=== PATIENT | male | born 1960 | race African-American/Black ===

== ENCOUNTER 2019-05-17 21:35 | Emergency (ER) | payer SELFPAY ==
--- NOTE | 2019-05-17 22:03 | ER Document Report ---
ED Medical Screen (RME) - General Chief Complaint: Psych Problem Stated Complaint: SI/PSYCH Time Seen by Provider: 05/17/19 22:02 Mode of Arrival: Ambulatory Information source: Patient Notes: 59-year-old male presented to ED for complaint of feeling like he wants to kill his girlfriend and then himself. He states he has not been less angry and upset and he stopped doing drugs. He states he has been donating blood regularly for the last 3 years and has never been turned down and recently he was turned down and he is scared to going to find out why he cannot donate blood. He states if his girlfriend is giving some the next and so he cannot give blood he is going to left. Patient is alert and oriented very angry. Respirations regular and unlabored speaking in full sentences. I have greeted and performed a rapid initial assessment of this patient. A comprehensive ED assessment and evaluation of the patient, analysis of test results and completion of medical decision making process will be conducted by an additional ED providers. Physical Exam - Vital signs Vitals: Temp Pulse Resp BP Pulse Ox 98.4 F 88 18 139/84 H 95 05/17/19 21:42 05/17/19 21:42 05/17/19 21:42 05/17/19 21:42 05/17/19 21:42 Course - Vital Signs Vital signs: Temp Pulse Resp BP Pulse Ox 98.4 F 88 18 139/84 H 95 05/17/19 21:42 05/17/19 21:42 05/17/19 21:42 05/17/19 21:42 05/17/19 21:42
[2019-05-17 22:45] LABS: ABSOLUTE BASOPHILS # (AUTO) 0.1 10^3/uL (0.0-0.2); ABSOLUTE EOSINOPHILS # (AUTO) 0.3 10^3/uL (0.0-0.6); ABSOLUTE LYMPHOCYTES (AUTO) 2.5 10^3/uL (0.5-4.7); ABSOLUTE MONOCYTES (AUTO) 0.6 10^3/uL (0.1-1.4); BASOPHILS % (AUTO) 1.2 % (0-2); EOSINOPHILS % (AUTO) 4.3 % (0-6); HEMATOCRIT 44.2 % (37.9-51.0); HEMOGLOBIN 15.1 g/dL (13.5-17.0); LYMPHOCYTES % (AUTO) 33.2 % (13-45); MEAN CORPUSCULAR HEMOGLOBIN 30.2 pg (27.0-33.4); MEAN CORPUSCULAR HGB CONC 34.3 g/dL (32.0-36.0); MEAN CORPUSCULAR VOLUME 88 fl (80-97); MONOCYTES % (AUTO) 8.5 % (3-13); PLATELET COUNT 361 10^3/uL (150-450); RED BLOOD COUNT 5.02 10^6/uL (4.35-5.55); RED CELL DISTRIBUTION WIDTH 14.2 % (11.5-14.0); SEGMENTED NEUTROPHILS % (AUTO) 52.8 % (42-78); TOTAL CELLS COUNTED % (AUTO) 100 %; WHITE BLOOD COUNT 7.6 10^3/uL (4.0-10.5)
[2019-05-17 22:56] LABS: APPEARANCE,URINE CLEAR; BILIRUBIN,URINE SMALL (NEGATIVE); COLOR,URINE AMBER; GLUCOSE, URINE NEGATIVE (NEGATIVE); KETONES,URINE TRACE mg/dL (NEGATIVE); LEUKOCYTE ESTERASE,URINE TRACE (NEGATIVE); NITRITE,URINE NEGATIVE (NEGATIVE); PROTEIN,URINE 30 mg/dL (NEGATIVE); URINE SPECIFIC GRAVITY 1.032
[2019-05-17 23:13] LABS: ALBUMIN 4.3 g/dL (3.5-5.0); ALKALINE PHOSPHATASE 84 U/L (38-126); ANION GAP 11 (5-19); ASPARTATE AMINO TRANSFERASE 38 U/L (17-59); BILIRUBIN,DIRECT 0.1 mg/dL (0.0-0.4); BILIRUBIN,TOTAL 0.8 mg/dL (0.2-1.3); BLOOD UREA NITROGEN 14 mg/dL (7-20); CALCIUM 9.9 mg/dL (8.4-10.2); CARBON DIOXIDE 28 mmol/L (22-30); CHLORIDE 105 mmol/L (98-107); GLUCOSE 112 mg/dL (75-110); POTASSIUM 3.9 mmol/L (3.6-5.0); TOTAL PROTEIN 7.1 g/dL (6.3-8.2)
[2019-05-17 23:14] LABS: ACETAMINOPHEN < 10 ug/mL (10-30); ALCOHOL < 10 mg/dL (NONE DETECTED); SALICYLATE < 1.0 mg/dL (2.0-20.0)
[2019-05-17] MEDS ORDERED: LIDOCAINE 1% INJ-PF (10 MG/ML) 30 ML SDV IM ONE (23:25)
[2019-05-17] MEDS ORDERED: CEFTRIAXONE INJ 250 MG VIAL IM ONE (23:25)
[2019-05-17 23:28] LABS: URINE AMPHETAMINES SCREEN NEGATIVE; URINE BARBITURATES SCREEN NEGATIVE; URINE BENZODIAZEPINES SCREEN NEGATIVE; URINE COCAINE SCREEN UNCONFIRMED POSITIVE; URINE MARIJUANA (THC) SCREEN NEGATIVE; URINE METHADONE SCREEN NEGATIVE; URINE PHENCYCLIDINE SCREEN NEGATIVE
[2019-05-18 01:07] LABS: CHLAM PCR NOT DETECTED (NOT DETECT)
--- NOTE | 2019-05-18 05:46 | ER Document Report ---
Entered by LORAINE GODDARD SCRIBE 05/17/19 3082 Acting as scribe for:BRANDON HOWELL DO ED Psych Disorder / Suicide - General Chief Complaint: Psych Problem Stated Complaint: SI/PSYCH Time Seen by Provider: 05/17/19 22:02 Mode of Arrival: Ambulatory Information source: Patient Notes: Patient is a 58-year-old male who presents to the emergency department today with complaints of homicidal and suicidal ideation. Patient states he stopped taking his medications for manic depression quite a while ago. Patient states that he got into an argument with his girlfriend prior to arrival which is why he is homicidal and suicidal. Patient states that he has "not been this upset in a while" but does not elaborate. Past Medical History - General Information source: Patient - Social History Smoking Status: Current Every Day Smoker Cigarette use (# per day): Yes Lives with: Spouse/Significant other Family History: Reviewed & Not Pertinent Review of Systems - Review of Systems Constitutional: No symptoms reported EENT: No symptoms reported Cardiovascular: No symptoms reported Respiratory: No symptoms reported Gastrointestinal: No symptoms reported Genitourinary: No symptoms reported Male Genitourinary: No symptoms reported Musculoskeletal: No symptoms reported Skin: No symptoms reported Hematologic/Lymphatic: No symptoms reported Neurological/Psychological: See HPI, Homicidal ideation, Suicidal ideation -: Yes All other systems reviewed and negative Physical Exam - Vital signs Vitals: Temp Pulse Resp BP Pulse Ox 98.4 F 88 18 139/84 H 95 05/17/19 21:42 05/17/19 21:42 05/17/19 21:42 05/17/19 21:42 05/17/19 21:42 Interpretation: Normal - General General appearance: Appears well, Alert - HEENT Head: Normocephalic, Atraumatic Eyes: Normal Pupils: PERRL - Respiratory Respiratory status: No respiratory distress Chest status: Nontender Breath sounds: Normal Chest palpation: Normal - Cardiovascular Rhythm: Regular Heart sounds: Normal auscultation Murmur: No - Abdominal Inspection: Normal Distension: No distension Bowel sounds: Normal Tenderness: Nontender Organomegaly: No organomegaly - Back Back: Normal, Nontender - Extremities General upper extremity: Normal inspection, Nontender, Normal color, Normal ROM, Normal temperature General lower extremity: Normal inspection, Nontender, Normal color, Normal ROM, Normal temperature, Normal weight bearing. No: Abraham's sign - Neurological Neuro grossly intact: Yes Cognition: Normal Orientation: AAOx4 Slaughters Coma Scale Eye Opening: Spontaneous Abran Coma Scale Verbal: Oriented Slaughters Coma Scale Motor: Obeys Commands Abran Coma Scale Total: 15 Speech: Normal Motor strength normal: LUE, RUE, LLE, RLE Sensory: Normal - Psychological Associated symptoms: Angry, Flat affect - Skin Skin Temperature: Warm Skin Moisture: Dry Skin Color: Normal Course - Re-evaluation Re-evalutation: 05/18/19 05:45 Patient is a 58-year-old male who comes in saying that he is suicidal and homicidal. Patient has a history of bipolar disorder and has not been taking his medications. States that he has not felt like this before. No acute findings on blood work. Patient wanted to be treated for gonorrhea and chlamydia. Of note, urine is negative for gonorrhea or chlamydia. Patient is medically stable and will be held for mental health evaluation. He does not know the names of the medications he was taking before. - Vital Signs Vital signs: Temp Pulse Resp BP Pulse Ox 97.9 F 75 16 132/88 H 97 05/18/19 02:28 05/18/19 02:28 05/18/19 02:28 05/18/19 02:28 05/18/19 02:28 - Laboratory Result Diagrams: 05/17/19 22:20 05/17/19 22:20 Laboratory results interpreted by me: 05/17/19 05/17/19 05/17/19 22:20 22:20 22:20 RDW 14.2 H Glucose 112 H Urine Protein 30 H Urine Ketones TRACE H Urine Bilirubin SMALL H Urine Urobilinogen 4.0 H Ur Leukocyte Esterase TRACE H Salicylates < 1.0 L Acetaminophen < 10 L Discharge - Discharge Clinical Impression: Suicidal ideation, Homicidal ideation Condition: Stable Disposition: OTHER I personally performed the services described in the documentation, reviewed and edited the documentation which was dictated to the scribe in my presence, and it accurately records my words and actions.
[2019-05-18 07:14] VITALS: BP 154/92
--- NOTE | 2019-05-18 07:53 | EKG REPORT ---
SEVERITY:- NORMAL ECG - SINUS RHYTHM : Confirmed by: Sim Salmeron 18-May-2019 07:52:51
--- NOTE | 2019-05-18 09:58 | ER Document Report ---
Doctor's Note Notes: 05/18/19 09:56 I have evaluated this pt. this am and he has no c/o at this time. He feels all of his needs are being met and his physical exam is normal. He is awaiting disposition per mental health.
[2019-05-18] MEDS ORDERED: OLANZAPINE 2.5 MG TABLET PO ONE (11:09)
--- NOTE | 2019-05-19 07:47 | PSYCHOLOGICAL NOTE ---
Psych Note - Psych Note Date seen by psych provider: 05/18/19 Time seen by psych provider: 07:43 - Chart review at 0743. Evaluation from [id number]. Psych Note: Presenting Problem: 24 Hour IVC Petition, Hx Bipolar, noncompliant with medications, SI/HI after argument with significant other. Patient had a UTI (received Rocephin injection) and UDS was positive for Cocaine. Today he identified about a month ago he was told he could not donate blood (something he has done 2 x a week for years) due to blood work not right and he needed to follow up with his doctor. He stated he began thinking and worrying he had an STD from his partner so thought she was cheating. What he described was perseveration and rumination. He admitted he said to his partner "woman I am 58 years old if I got anything I'm going to kill you." He commented "I'm too old for that crap." He identified he had been going to [facility], was prescribed medications (Depakote, Trazodone, Ambien), has been off medications and not been to [facility] in 2 years, and was diagnosed manic depression. He admitted to previous drug and alcohol use, had been clean for 2 years, until 5 days ago when he drank and used Cocaine, he denied use of anything yesterday. He admitted to previous Hospitalization and the last time was 2-3 years ago at [facility]. Patient was alert and oriented x5 with linear thinking, he denied current SI/HI, mood was euthymic with congruent affect, he was able to engage in evaluation and carry on dialogue conversation and conversational speech was within normal limits for rate/tone/prosody. Attempted to call EC Sidney Casas ([phone]). It was her daughter who answered, would not give a number for Sidney and wanted to know information about why the phone call and who it was about (did not have verbal consent to speak with this person who was not the emergency contact so no information provided, had to assertively say thank you and hang up as the person was persistent in trying to get information). She had asked to be removed as EC. Diagnosis: Bipolar by Hx Noncompliant with medications x 2 years Cocaine Use Disorder, Severe (per patient relapsed 5 days ago after being clean 2 years) Alcohol Use Disorder, Severe (per patient relapsed 5 days ago after being clean 2 years) Medication recommendations made by the psychiatric medical provider, Dr. Meena MD., includes: Add Zyprexa 2.5MG twice a day for mood stabilization/impulse control (now dose then scripts) Impression/Plan: Patient is cleared from acute psychiatric services. Recommendation to rescind 24 Hour IVC Petition. Patient was alert and oriented x5 with linear thinking, he denied current SI/HI, mood was euthymic with congruent affect, he was able to engage in evaluation and carry on dialogue conv ersation and conversational speech was within normal limits for rate/tone/prosody. No observed psychosis that seemed to interfere with ability to express self/wants/needs and interact appropriately with others. He was provided a prescription for a mood stabilizer since hx of Bipolar and off medications for 2 years and made aware of Good [facility] with cheapest place to get his medication (Zyprexa) at [facility]. He was instructed to do a walk in to [facility] (previous provider, last visit was 2 years ago) today (05/18/19) immediately upon discharge from the ED. He was provided the outpatient MH resource sheet which documented alk in to [facility] and highlighted IFS MCM (explained how to utilize them). Consulted with Dr. Johnson regarding the management and care of patient. ED Physician in agreement with recommendations.
== END 2019-05-18 11:48 | disposition home or self-care (01) ==
LOC: ER 21:35 → EDBD 21:35 → ER 05-18 11:48
DX: R45.851 Suicidal ideations (principal); R45.850 Homicidal ideations; F31.9 Bipolar disorder, unspecified; F10.10 Alcohol abuse, uncomplicated; F14.10 Cocaine abuse, uncomplicated; F17.210 Nicotine dependence, cigarettes, uncomplicated
CPT/HCPCS: 93005; 36415; 80307 ×4; 85025; 80053; 81001; 87491; 87591; 93010; J3490 ×2; J0696; 96374; 96375; 99285

== ENCOUNTER 2019-05-19 06:53 | Emergency (ER) | payer SELFPAY ==
--- NOTE | 2019-05-19 07:40 | ER Document Report ---
ED Psych Disorder / Suicide <GEOVANNI GRAHAM - Last Filed: 05/19/19 10:41> - General TRAVEL OUTSIDE OF THE [place] IN LAST 30 DAYS: No <YNES VELÁZQUEZ - Last Filed: 05/19/19 10:48> - General Chief Complaint: Psych Problem Stated Complaint: ALTERED MENTAL STATUS Time Seen by Provider: 05/19/19 07:30 Notes: 58-year-old male with history of mental illness and substance abuse presents to the ER complaining of having "crazy thoughts "he stated he is having thoughts of hurting himself but has no specific plan. He is having thoughts of hurting his "old lady" the patient was here yesterday and seen. He was given prescriptions but did not fill them. He states he is having thoughts of hurting himself and having crazy thoughts. He is also seeing shadows but attributes that to his cocaine use. He left here yesterday and did drugs and was out all night. Patient returns here today. He denies any physical complaints no chest pain or shortness of breath no abdominal pain. (YNES VELÁZQUEZ) - Related Data Allergies/Adverse Reactions: No Known Allergies Allergy (Verified 05/19/19 08:23) Past Medical History - Social History Smoking Status: Current Every Day Smoker Family History: Reviewed & Not Pertinent <YNES VELÁZQUEZ - Last Filed: 05/19/19 10:48> Review of Systems - Review of Systems Constitutional: denies: Chills, Fever Cardiovascular: denies: Chest pain, Palpitations Respiratory: denies: Short of breath Gastrointestinal: denies: Diarrhea, Nausea, Vomiting Genitourinary: denies: Dysuria Neurological/Psychological: Hallucinations, Suicidal ideation -: Yes All other systems reviewed and negative <YNES VELÁZQUEZ - Last Filed: 05/19/19 10:48> Physical Exam <YNES VELÁZQUEZ - Last Filed: 05/19/19 10:48> - Vital signs Vitals: Temp Pulse Resp BP Pulse Ox 98 F 95 18 176/100 H 97 05/19/19 06:59 05/19/19 06:59 05/19/19 06:59 05/19/19 06:59 05/19/19 06:59 - Notes Notes: GENERAL_APPEARANCE: well_nourished, alert, appears agitated but follows directions VITALS: reviewed, see vital signs table. HEAD: no_swelling\\tenderness on the head. EYES: PERRL, EOMI, conjunctiva_clear. NOSE: no_nasal_discharge. MOUTH: (-)decreased moisture. THROAT: no_tonsilar_inflammation, no_airway_obstruction. no_lymphadenopathy NECK: supple, no_neck_tenderness, (-)thyromegaly. BACK: no_back_tenderness. CHEST_WALL: no_chest_tenderness. LUNGS: no_wheezing, no_rales, no_rhonchi, (-)accessory muscle use, good air exchange bilateral. HEART: normal_rate, normal_rhythm, normal_S1, normal_S2, (-)S3, (-)S4, no_murmur, no_rub. ABDOMEN: normal_BS, soft, no_abd_tenderness, (-)guarding, (-)rebound, no_organomegaly, no_abd_masses. EXTREMITIES: strength 5/5 in all_extremities, good pulses in all_extremities, no_swelling\\tenderness in the extremities, no_edema. SKIN: warm, dry, good_color, no_rash. MENTAL_STATUS: speech_clear, oriented_X_3, normal_affect, responds_appropriately to questions. PSYCH: States he is having thoughts of hurting himself but has no specific plan, denies auditory hallucinations but states he is seeing shadows visually. States he has no homicidal ideation but does want to hurt his "old lady "states he is just upset with her. (YNES VELÁZQUEZ) Course - Laboratory Result Diagrams: 05/19/19 09:10 05/19/19 09:10 <GEOVANNI GRAHAM - Last Filed: 05/19/19 10:41> - Laboratory Result Diagrams: 05/19/19 09:10 05/19/19 09:10 <YNES VELÁZQUEZ - Last Filed: 05/19/19 10:48> - Re-evaluation Re-evalutation: 05/19/19 07:38 58-year-old male who presents for psychiatric evaluation. He states he is having thoughts of hurting himself but has no specific plan he was here yesterday and meds were adjusted but did not fill them he would not do drugs last night and returns. Likely a lot of this is drug related. He has a dual diagnosis. We will check his alcohol and drug levels and monitor him for a while. Psych may revisit him however I do not believe the recommendations will change especially if he has not taken any other medicines he was recommended yesterday. 05/19/19 10:47 Patient seen by our psych team and they have arranged a outpatient detox for bed for him he will need to be discharged and will be able to travel to the bed. (YNES VELÁZQUEZ) - Vital Signs Vital signs: Temp Pulse Resp BP Pulse Ox 98 F 95 18 176/100 H 97 05/19/19 06:59 05/19/19 06:59 05/19/19 06:59 05/19/19 06:59 05/19/19 06:59 - Laboratory Laboratory results interpreted by me: 05/19/19 05/19/19 05/19/19 08:15 09:10 09:10 RDW 14.8 H BUN 6 L Urine Urobilinogen 2.0 H Salicylates < 1.0 L Acetaminophen < 10 L Discharge <GEOVANNI GRAHAM - Last Filed: 05/19/19 10:41> <YNES VELÁZQUEZ - Last Filed: 05/19/19 10:48> - Discharge Clinical Impression: Suicidal ideation, Cocaine abuse, Alcohol abuse, History of bipolar disorder Condition: Stable Disposition: HOME, SELF-CARE Additional Instructions: You have been evaluated both medical and behavioral health teams and been deemed appropriate for discharge. Behavioral health team has assisted and is caring a voluntary placement at [facility]. You are highly encouraged to follow through with this placement. COCAINE ABUSE: Cocaine causes many dangerous medical problems. Problems can occur even with "usual" amounts. Cocaine affects judgement, creating a sense of invulnerability. Cocaine users often make bad decisions that seem "great" at the time. Most cocaine users eventually will be hurt by bad job performance, damaged personal relations, crime, and unsafe sexual practices. Toxic effects of cocaine can include seizures, hallucinations, delusions, high blood pressure, heart damage, or sudden . There's always the risk of a "bad batch." But heart attacks, brain hemorrhages, or cardiac arrest can occur unpredictably even with "normal" use. Injection of cocaine is risky for abscesses, endocarditis (heart infecti on), pneumonia, and AIDS. Withdrawal from cocaine often causes anxiety and drug cravings. Some users become paranoid and psychotic. Many treatment programs are available, but you must make the decision to quit. Medication can be prescribed to control the symptoms of cocaine toxicity (beta blockers or benzodiazepines). Withdrawal symptoms may require tranquilizers. Bipolar Disorder Bipolar disorder is also called manic-depressive disorder. Depression alternates with brain hyperactivity called brenda. Each phase lasts from several days to a few weeks. We don't know exactly what causes bipolar disorder, but it's treatable. During the "manic phase," you may feel elated and energetic. You may have racing thoughts, rapid speech, increased activity, and grandiose ideas. During this time, you may not realize how poor your judgement is. Inappropriate spendi ng, drug abuse, excessive alcohol use, marriage problems, and irresponsible sexual behavior are common during the manic phase. During the "depressive phase," you might feel depressed, guilty, worthless, fatigued, and unable to concentrate. You might have thoughts of suicide. Good treatments are available for bipolar disorder. Clatonia is a classic drug for bipolar disorder, and is still often useful. If the manic phase is very mild, an antidepressant alone can be prescribed. If the manic phase is very severe, an antipsychotic medicine (such as Haldol) may be needed. The treatment must be matched to your symptoms, so it's important to work closely with your psychiatric care provider. Contact your physician, the hospital emergency center, crisis line, or your counsellor if you are losing control or having self-destructive thoughts. FOLLOW-UP CARE: If you have been referred to a physician for follow-up care, call the physicians office for an appointment as you were instructed or within the next two days. If you experience worsening or a significant change in your symptoms, notify the physician immediately or return to the Emergency Department at any time for re-evaluation.
[2019-05-19 08:34] LABS: APPEARANCE,URINE CLEAR; BILIRUBIN,URINE NEGATIVE (NEGATIVE); COLOR,URINE YELLOW; GLUCOSE, URINE NEGATIVE (NEGATIVE); KETONES,URINE NEGATIVE (NEGATIVE); LEUKOCYTE ESTERASE,URINE NEGATIVE (NEGATIVE); NITRITE,URINE NEGATIVE (NEGATIVE); PROTEIN,URINE NEGATIVE (NEGATIVE); URINE SPECIFIC GRAVITY 1.011
[2019-05-19 08:50] LABS: URINE AMPHETAMINES SCREEN NEGATIVE; URINE BARBITURATES SCREEN NEGATIVE; URINE BENZODIAZEPINES SCREEN NEGATIVE; URINE MARIJUANA (THC) SCREEN NEGATIVE; URINE METHADONE SCREEN NEGATIVE; URINE PHENCYCLIDINE SCREEN NEGATIVE
--- NOTE | 2019-05-19 09:18 | PSYCHOLOGICAL NOTE ---
Psych Note - Psych Note Date seen by psych provider: 05/19/19 Time seen by psych provider: 08:45 Psych Note: Reason For Consult:Detox Consent Permissions: Not provided Patient reports he took the bus to [facility] ED because he was "feeling funny.. Not feeling the way I am supposed to feel." He reports that he was here yesterday where he was... Given medication and to follow-up with [facility] however states that he refuses to go to [facility]. He states that "they are going to help me they do nothing that is why I stopped going 3 years ago." Patient feels that he medications provided to him after short evaluation will not be effective and needs inpatient psychiatric treatment. Patient states he does want to be sober and was clean for 3 years until this week. Patient reports passive suicidal and homicidal ideation denies plan means or intent. Patient reports he has been walking for the last 2 nights and just "needs help." Patient is alert and orientated to person, place, time and circumstance. Mood is dysphoric with congruent affect. Patient endorses passive suicidal and homicidal ideation (ie no plans, means, and intent). Delusions are absent and behaviors congruent with an intact reality based presentation ie organized and linear thought process. Eye contact is poor. Conversational speech is within normal rate, tone and prosody. Intellectual abilities appear to be within the average range. Attention and concentration are good. Insight, judgment, i mpulse control are fair. Behavioral health team contacted [facility]. They request patient's "medical clearance" faxed. Patient has been accepted for voluntary bed. Diagnosis: Substance Abuse; Cocaine Bipolar disorder per history provided by patient Medication recommendations per [facility]'s contracted psychiatrist Dr. Meena BYRD are as follows No medication recommendations at this time Impression\\plan: Patient is cleared from acute psychiatric services. Patient was seen yesterday by the behavioral health team and provided medications. Patient states he needs inpatient treatment to assist in sobriety and to get on "the right meds." He does not believe that the medications provided by the behavioral health team will help. Patient reports he was sober for 3 years until this past week. Patient is agreeable to voluntary placement. The behavioral health team has been able to secure a voluntary placement at [facility]. Patient is highly encouraged to follow through with this recommendation. Dr. Johnson was consulted to care management of this patient; attending physicians in agreement with recommendations and disposition.
[2019-05-19 09:23] LABS: ABSOLUTE BASOPHILS # (AUTO) 0.1 10^3/uL (0.0-0.2); ABSOLUTE EOSINOPHILS # (AUTO) 0.3 10^3/uL (0.0-0.6); ABSOLUTE LYMPHOCYTES (AUTO) 2.1 10^3/uL (0.5-4.7); ABSOLUTE MONOCYTES (AUTO) 0.5 10^3/uL (0.1-1.4); ABSOLUTE NEUT (AUTO) 5.1 10^3/uL (1.7-8.2); EOSINOPHILS % (AUTO) 4.1 % (0-6); HEMATOCRIT 46.8 % (37.9-51.0); HEMOGLOBIN 16.2 g/dL (13.5-17.0); MEAN CORPUSCULAR HEMOGLOBIN 30.5 pg (27.0-33.4); MEAN CORPUSCULAR HGB CONC 34.6 g/dL (32.0-36.0); MEAN CORPUSCULAR VOLUME 88 fl (80-97); MONOCYTES % (AUTO) 5.9 % (3-13); PLATELET COUNT 382 10^3/uL (150-450); RED CELL DISTRIBUTION WIDTH 14.8 % (11.5-14.0); TOTAL CELLS COUNTED % (AUTO) 100 %; WHITE BLOOD COUNT 8.1 10^3/uL (4.0-10.5)
[2019-05-19 09:43] LABS: ACETAMINOPHEN < 10 ug/mL (10-30); ALBUMIN 4.9 g/dL (3.5-5.0); ALCOHOL 11 mg/dL (NONE DETECTED); ALKALINE PHOSPHATASE 107 U/L (38-126); ANION GAP 14 (5-19); ASPARTATE AMINO TRANSFERASE 40 U/L (17-59); BILIRUBIN,DIRECT 0.1 mg/dL (0.0-0.4); BILIRUBIN,TOTAL 0.8 mg/dL (0.2-1.3); BLOOD UREA NITROGEN 6 mg/dL (7-20); CALCIUM 9.9 mg/dL (8.4-10.2); CARBON DIOXIDE 29 mmol/L (22-30); CHLORIDE 101 mmol/L (98-107); GLUCOSE 76 mg/dL (75-110); POTASSIUM 4.1 mmol/L (3.6-5.0); SALICYLATE < 1.0 mg/dL (2.0-20.0); TOTAL PROTEIN 8.1 g/dL (6.3-8.2)
[2019-05-19 11:08] VITALS: BP 160/103
--- NOTE | 2019-05-19 20:54 | EKG REPORT ---
SEVERITY:- ABNORMAL ECG - SINUS RHYTHM NONSPECIFIC INTRAVENTRICULAR CONDUCTION DELAY : Confirmed by: Lexy Mcarthur MD 19-May-2019 20:53:31
== END 2019-05-19 11:17 | disposition home or self-care (01) ==
LOC: ER 06:53
DX: R45.851 Suicidal ideations (principal); F14.10 Cocaine abuse, uncomplicated; F10.10 Alcohol abuse, uncomplicated; R44.1 Visual hallucinations; F17.200 Nicotine dependence, unspecified, uncomplicated; Z91.14 Patient's other noncompliance with medication regimen; Z86.59 Personal history of other mental and behavioral disorders
CPT/HCPCS: 36415; 80053; 80307; 81001; 85025; 93005; 93010; 99285